=== PATIENT | female | born 1970 | race African-American/Black ===

== ENCOUNTER 2022-04-04 21:28 | Emergency (ER) | payer OTHER ==
[~2022-04-04] VITALS: Ht 165.1 cm; Wt 95.5 kg
[~2022-04-04 21:28] MED LIST: FISH1CAP27 PO; LEVO250C5 PO; PHEN37.596 PO; SAFF1000 PO
[2022-04-04 21:31] VITALS: BP 183/102
[2022-04-04] MEDS ORDERED: HYDR25TA2 PO (21:51)
[2022-04-04] MEDS ORDERED: LISI-893 PO (21:51)
== END 2022-04-05 | disposition left against medical advice (07) ==
LOC: EMS 21:33
DX: Z53.21 Procedure and treatment not carried out due to patient leaving prior to being seen by health care provider (principal)
CPT/HCPCS: 93005

== ENCOUNTER 2023-08-13 17:10 | Emergency (ER) | payer OTHER ==
[~2023-08-13] VITALS: Ht 162.6 cm; Wt 100.0 kg
[~2023-08-13 17:10] MED LIST changes: +HYDR25TA2 PO; +LISI-893 PO
[2023-08-13 17:18] VITALS: TEMP 98
[2023-08-13 17:55] LABS: BASOPHILS % (AUTO) 0.7 % (0.0-2.0); HEMOGLOBIN 11.1 g/dL (12.0-16.0); LYMPHOCYTES # (AUTO) 3.2 K/uL (1.0-4.8); LYMPHOCYTES % (AUTO) 24.5 % (22.0-44.0); MEAN CORPUSCULAR HGB CONC 31.6 G/dL (31.0-37.0); MEAN CORPUSCULAR VOLUME 82 fL (80-100); MONOCYTES # (AUTO) 0.8 K/uL (0.1-1.0); MONOCYTES % (AUTO) 5.8 % (2.0-9.0); NEUTROPHILS # (AUTO) 8.7 K/uL (1.8-7.7); PLATELET COUNT (AUTO) 496 K/uL (150-450); RED BLOOD CELL COUNT(AUTO) 4.26 MIL/uL (4.00-5.20); RED CELL DISTRIBUTION WIDTH 18.1 % (11.5-14.5)
[2023-08-13 18:01] LABS: TROPONIN I-HIGH SENSITIVITY 30 ng/L (<51)
[2023-08-13 18:19] LABS: COVID AG,FIA SOURCE NASAL SWAB
[2023-08-13 18:22] LABS: ALBUMIN 3.4 g/dL (3.4-5.0); BILIRUBIN,TOTAL 0.3 mg/dL (0.1-1.0); CALCIUM, TOTAL 9.1 mg/dL (8.8-10.5); CREATININE 1.27 mg/dL (0.60-1.30); TOTAL PROTEIN, SERUM 8.9 g/dL (6.4-8.2)
[2023-08-13 18:30] VITALS: BP 150/90; PULSE 98; RESP 16
[2023-08-13] MEDS: POTASSIUM CHLORIDE 20 MEQ ER TABLET PO ONE (18:34)
[2023-08-13 19:05] LABS: INFLUENZA TYPE A NEGATIVE FOR TYPE A (NEGATIVE); INFLUENZA TYPE B NEGATIVE FOR TYPE B (NEGATIVE); SARS-COV2 (COVID) ANTIGEN,FIA Negative (Negative)
== END 2023-08-13 18:48 | disposition home or self-care (01) ==
LOC: EMS 17:10
DX: R19.7 Diarrhea, unspecified (principal); E87.6 Hypokalemia; I10 Essential (primary) hypertension; Z98.890 Other specified postprocedural states; Z91.011 Allergy to milk products; Z91.040 Latex allergy status; Z20.822 Contact with and (suspected) exposure to COVID-19
CPT/HCPCS: 80053; 82550; 82962; 83880; 84484; 84703; 85025; 87804; 93005; 99284

== ENCOUNTER 2023-10-20 06:49 | Emergency (ER) | payer OTHER ==
[~2023-10-20] VITALS: Ht 165.1 cm; Wt 100.0 kg
[2023-10-20 06:52] VITALS: TEMP 98.3
[2023-10-20] MEDS: KETOROLAC TROMETHAMINE 30 MG/ML VIAL IM ONE (08:19)
[2023-10-20] MEDS: LIDOCAINE 5% TRANSDERMAL PATCH TD ONE (08:20)
[2023-10-20] MEDS ORDERED: LIDO700A15 TP (08:50)
[2023-10-20] MEDS ORDERED: TRAM50TA5 PO (08:50)
[2023-10-20 09:04] VITALS: BP 148/80; PULSE 94; RESP 20
== END 2023-10-20 09:06 | disposition home or self-care (01) ==
LOC: EMS 06:50
DX: M25.512 Pain in left shoulder (principal); M79.18 Myalgia, other site; I10 Essential (primary) hypertension; Z91.011 Allergy to milk products; Z98.890 Other specified postprocedural states
CPT/HCPCS: 99283; 29105; 73030; 96372; J1885

== ENCOUNTER 2023-10-23 19:01 | Emergency (ER) | payer OTHER ==
[~2023-10-23] VITALS: Ht 165.1 cm; Wt 100.0 kg
[~2023-10-23 19:01] MED LIST changes: +LIDO700A15 TP; +TRAM50TA5 PO
[2023-10-23] MEDS ORDERED: CEPH500C2 PO (19:39)
[2023-10-23 20:12] LABS: BASOPHILS % (AUTO) 0.7 % (0.0-2.0); EOSINOPHILS % (AUTO) 3.5 % (1.0-6.0); HEMATOCRIT 38.6 % (36-46); HEMOGLOBIN 12.6 g/dL (12.0-16.0); LYMPHOCYTES # (AUTO) 2.1 K/uL (1.0-4.8); LYMPHOCYTES % (AUTO) 15.7 % (22.0-44.0); MEAN CORPUSCULAR HEMOGLOBIN 28.5 pg (26.0-34.0); MEAN CORPUSCULAR HGB CONC 32.6 G/dL (31.0-37.0); MEAN CORPUSCULAR VOLUME 87 fL (80-100); MONOCYTES # (AUTO) 0.8 K/uL (0.1-1.0); NEUTROPHILS % (AUTO) 74.1 % (40.0-70.0); PLATELET COUNT (AUTO) 441 K/uL (150-450); RED BLOOD CELL COUNT(AUTO) 4.41 MIL/uL (4.00-5.20); RED CELL DISTRIBUTION WIDTH 18.6 % (11.5-14.5); WHITE BLOOD COUNT (AUTO) 13.5 K/uL (4.5-11.0)
[2023-10-23 20:16] LABS: ERYTHROCYTE SEDIMENTATION RATE 98 MM/HR (0-30)
[2023-10-23 21:20] LABS: ALKALINE PHOSPHATASE 79 U/L (46-116); ANION GAP 11 mmol/L (8-16); BILIRUBIN,TOTAL 0.2 mg/dL (0.1-1.0); CALCIUM, TOTAL 9.5 mg/dL (8.8-10.5); CARBON DIOXIDE 27 mmol/L (22-29); CHLORIDE 98 mmol/L (98-107); CREATININE 0.96 mg/dL (0.60-1.30); GLOMERULAR FILTR. RATE CALC > 60 mL/min (>60); POTASSIUM 3.2 mmol/L (3.5-5.1); SODIUM SERUM 136 mmol/L (136-145)
[2023-10-23 21:21] LABS: ALANINE AMINOTRANSFERASE 19 U/L (12-78); ALBUMIN 2.9 g/dL (3.4-5.0); C-REACTIVE PROTEIN QUANT 10.47 mg/dL (0.00-0.30); HCG,QUANTITATIVE 1 mIU/mL (0-6)
[2023-10-23 21:32] LABS: ASPARTATE AMINOTRANSFERASE 18 U/L (15-37); GLUCOSE,RANDOM 111 mg/dL (70-110); UREA NITROGEN, BLOOD 11 mg/dL (7-18)
[2023-10-23] MEDS ORDERED: KETOROLAC TROMETHAMINE 60 MG/2 ML VIAL IM ONE (22:30)
[2023-10-23] MEDS: KETOROLAC TROMETHAMINE 30 MG/ML VIAL IVP ONE (22:44)
[2023-10-23] MEDS: LIDOCAINE 5% TRANSDERMAL PATCH TD ONE (22:45)
[2023-10-23] MEDS: METHOCARBAMOL 500 MG TABLET PO ONE (22:45)
[2023-10-23] MEDS: AmLODIPine BESYLATE 5 MG TABLET PO ONE (23:43)
[2023-10-24 00:30] VITALS: BP 156/72; PULSE 86; RESP 16; TEMP 97.6
[2023-10-24] MEDS ORDERED: IBUP-1492 PO (00:46)
[2023-10-24] MEDS ORDERED: METH-659 PO (00:46)
== END 2023-10-24 00:58 | disposition home or self-care (01) ==
LOC: EMS 19:01
DX: M75.102 Unspecified rotator cuff tear or rupture of left shoulder, not specified as traumatic (principal); I10 Essential (primary) hypertension; Z98.890 Other specified postprocedural states; Z91.011 Allergy to milk products
CPT/HCPCS: 99285; 96374; 93971; 80053; 84702; 85025; 85379; 85651; 86140; 87040; 36415; 93930; J1885

== ENCOUNTER 2024-03-03 01:29 | Emergency (ER) | payer OTHER ==
[~2024-03-03] VITALS: Ht 165.1 cm; Wt 90.9 kg
[~2024-03-03 01:29] MED LIST changes: +CEPH500C2 PO; +IBUP-1492 PO; +METH-659 PO
[2024-03-03 01:37] VITALS: BP 174/100; PULSE 103; RESP 16; TEMP 98.2; O2SAT 100
[2024-03-03 02:12] LABS: BASOPHILS % (AUTO) 0.6 % (0.0-2.0); EOSINOPHILS % (AUTO) 3.2 % (1.0-6.0); HEMOGLOBIN 13.7 g/dL (12.0-16.0); LYMPHOCYTES # (AUTO) 2.3 K/uL (1.0-4.8); LYMPHOCYTES % (AUTO) 19.3 % (22.0-44.0); MEAN CORPUSCULAR HEMOGLOBIN 30.7 pg (26.0-34.0); MEAN CORPUSCULAR HGB CONC 33.5 G/dL (31.0-37.0); MEAN CORPUSCULAR VOLUME 92 fL (80-100); MONOCYTES # (AUTO) 0.7 K/uL (0.1-1.0); MONOCYTES % (AUTO) 5.8 % (2.0-9.0); NEUTROPHILS # (AUTO) 8.5 K/uL (1.8-7.7); NEUTROPHILS % (AUTO) 71.1 % (40.0-70.0); PLATELET COUNT (AUTO) 500 K/uL (150-450); RED BLOOD CELL COUNT(AUTO) 4.47 MIL/uL (4.00-5.20); RED CELL DISTRIBUTION WIDTH 14.4 % (11.5-14.5); WHITE BLOOD COUNT (AUTO) 11.9 K/uL (4.5-11.0)
[2024-03-03 02:22] LABS: ANION GAP 10 mmol/L (8-16); CALCIUM, TOTAL 9.3 mg/dL (8.8-10.5); CARBON DIOXIDE 30 mmol/L (22-29); CHLORIDE 100 mmol/L (98-107); CREATININE 0.87 mg/dL (0.60-1.30); GLOMERULAR FILTR. RATE CALC > 60 mL/min (>60); GLUCOSE,RANDOM 118 mg/dL (70-110); POTASSIUM 3.5 mmol/L (3.5-5.1); SODIUM SERUM 140 mmol/L (136-145); UREA NITROGEN, BLOOD 8 mg/dL (7-18)
[2024-03-03 02:29] LABS: TROPONIN I-HIGH SENSITIVITY 28 ng/L (<51)
[2024-03-03 02:41] LABS: B-TYPE NATRIURETIC PEPTIDE 50 pg/mL (0-100)
== END 2024-03-03 03:46 | disposition home or self-care (01) ==
LOC: EMS 01:29
DX: R20.2 Paresthesia of skin (principal); I10 Essential (primary) hypertension; Z91.010 Allergy to peanuts; Z91.011 Allergy to milk products; Z91.040 Latex allergy status
CPT/HCPCS: 80048; 83880; 84484; 84703; 85025; 85379; 93005; 99284

== ENCOUNTER 2024-03-04 20:32 | Emergency (ER) | payer OTHER ==
[~2024-03-04] VITALS: Ht 162.6 cm; Wt 94.5 kg
[2024-03-04 20:56] VITALS: BP 156/104; PULSE 99; RESP 16; TEMP 97.6; O2SAT 100
== END 2024-03-04 22:01 | disposition left against medical advice (07) ==
LOC: EMS 20:32
DX: R42 Dizziness and giddiness (principal); R20.2 Paresthesia of skin; Z53.21 Procedure and treatment not carried out due to patient leaving prior to being seen by health care provider
CPT/HCPCS: 82962